=== PATIENT | female | born 2000 | race Caucasian/White ===

== ENCOUNTER 2020-12-07 20:57 | Emergency (ER) | payer SELFPAY ==
[2020-12-08 01:26] LABS: Absolute Lymphocytes (CBC) 1.2 K/uL (0.7-4.9); Basophils % 0.3 % (0-1.3); Hematocrit 37.5 % (36.0-45.0); Lymphocytes % 8.6 % (15.3-44.8); MPV 8.6 fL (7.6-11.3); RBC Red Blood Cell Count 4.47 M/uL (3.86-4.86)
[2020-12-08] MEDS ORDERED: KETOROLAC 30 MG/ML INJ ONE (01:26)
[2020-12-08] MEDS ORDERED: MORPHINE 4 MG/ML SYR ONE (01:26)
[2020-12-08] MEDS ORDERED: ONDANSETRON 4 MG/2 ML VIAL ONE (01:26)
[2020-12-08] MEDS ORDERED: NA CHLORIDE 0.9% 1,000 ML ONE (01:26)
[2020-12-08 01:47] LABS: ALT/SGPT 18 U/L (12-78); AST/SGOT 11 U/L (15-37); Albumin 3.7 g/dL (3.4-5.0); BUN Blood Urea Nitrogen 11 mg/dL (7-18); Bicarbonate 25 mmol/L (21-32); Bilirubin Direct < 0.1 mg/dL (0-0.2); Bilirubin Total 0.2 mg/dL (0.2-1.0); Glucose Level 106 mg/dL (74-106); Lipase 70 U/L (73-393); Potassium 4.3 mmol/L (3.5-5.1); Protein, Total 7.9 g/dL (6.4-8.2); Sodium Level 141 mmol/L (136-145)
[2020-12-08 01:48] LABS: Alkaline Phosphatase ND U/L (45-117)
[2020-12-08 02:04] LABS: Urine Bacteria <20 /HPF (<20)
[2020-12-08 02:05] LABS: Urine Blood 3+ (NEG); Urine Glucose NEGATIVE (NEG); Urine Mucus 3+ /HPF (NONE SEEN); Urine Protein TRACE (NEG); Urine Specific Gravity >1.030 (1.005-1.030); Urine Urothelial Cells <5 /HPF (NONE SEEN); Urine pH 5.5 (5.0-7.0)
--- NOTE | 2020-12-08 02:24 | ER ---
Nurse's Notes [facility] Name: Larry Robledo Age: 20 yrs Sex: Female : 2000 Arrival Date: 12/07/2020 Time: 20:58 Bed 5 Private MD: Diagnosis: Hydronephrosis with renal and ureteral calculous obstruction-passed Presentation: 12/07 21:45 Chief complaint: Patient states: R lower back and R abdominal pain for 1 day. States ll1 she has had 3 episodes of N/V today. Fever 100.2 at home today. Near syncope feeling all day. No dysuria or bloody urine. Period started today, not . Coronavirus screen: Client denies travel out of the [place] in the last 14 days. At this time, the client does not indicate any symptoms associated with coronavirus-19. Ebola Screen: Patient denies travel to an Ebola-affected area in the 21 days before illness onset. Initial Sepsis Screen: Does the patient meet any 2 criteria? No. Patient's initial sepsis screen is negative. Does the patient have a suspected source of infection? Yes: Acute abdominal pain. Risk Assessment: Do you want to hurt yourself or someone else? Patient reports no desire to harm self or others. Onset of symptoms was December 07, 2020. 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 - Social history:: Smoking status: Patient denies any tobacco usage or history of. Screenin/18 00:30 Abuse screen: Denies threats or abuse. Denies injuries from another. Nutritional wh screening: No deficits noted. Tuberculosis screening: No symptoms or risk factors identified. Fall Risk None identified. Assessment: 00:30 General: Appears in no apparent distress. Behavior is calm, cooperative, appropriate wh for age. Pain: Complains of pain in right lower quadrant Pain radiates to right low back and right mid back Pain began 1 day ago. Is intermittent. Neuro: Level of Consciousness is awake, alert, obeys commands, Oriented to person, place, time, situation, Appropriate for age. Cardiovascular: Capillary refill < 3 seconds. Respiratory: Airway is patent Respiratory effort is even, unlabored, Respiratory pattern is regular, symmetrical. GI: Abdomen is flat, non-distended, Abd is soft and non tender X 4 quads. : No signs and/or symptoms were reported regarding the genitourinary system. EENT: No signs and/or symptoms were reported regarding the EENT system. Derm: Skin is intact, is healthy with good turgor, Skin is pink, warm \T\ dry. normal. Musculoskeletal: Amputation of Circulation, motion, and sensation intact. 01:55 Reassessment: Patient appears in no apparent distress at this time. No changes from previously documented assessment. Patient and/or family updated on plan of care and expected duration. Pain level reassessed. Patient is alert, oriented x 3, equal unlabored respirations, skin warm/dry/pink. Vital Signs: 12/07 21:45 BP 140 / 75; Pulse 81; Resp 17; Temp 97.9; Pulse Ox 99% ; Weight 95.25 kg; Height 5 ft. ll1 9 in. (175.26 cm); Pain 9/10; 12/08 01:54 BP 118 / 77; Pulse 81; Resp 18; Pulse Ox 100% on R/A; 02:45 BP 113 / 71; Pulse 64; Resp 16; Pulse Ox 100% ; rv 12/07 21:45 Body Mass Index 31.01 (95.25 kg, 175.26 cm) ll1 ED Course: 12/07 20:58 Patient arrived in ED. cl3 21:47 Triage completed. ll1 21:49 Arm band placed on. ll1 12/08 00:28 Maegan Escobar, RN is Primary Nurse. 00:30 Patient has correct armband on for positive identification. Bed in low position. Call light in reach. Side rails up X 1. Pulse ox on. NIBP on. 00:35 Shalom King MD is Attending Physician. [facility] 00:45 Inserted saline lock: 20 gauge in right antecubital area, using aseptic technique. Blood collected. 01:27 CT Stone Protocol In Process Unspecified. EDCT 02:22 Donal Moy MD is Referral Physician. [facility] 02:45 No provider procedures requiring assistance completed. IV discontinued, intact, rv bleeding controlled, No redness/swelling at site. Pressure dressing applied. Administered Medications: 01:22 Drug: NS 0.9% 1000 ml Route: IV; Rate: 1 bolus; Site: right antecubital; 02:28 Follow up: Response: No adverse reaction; IV Status: Completed infusion 01:24 Drug: TORadol 30 mg Route: IVP; Site: right antecubital; 02:28 Follow up: Response: No adverse reaction; Pain is decreased 01:26 Drug: morphine 4 mg {Note: RASS 0.} Route: IVP; Site: right antecubital; 02:28 Follow up: Response: No adverse reaction; Pain is decreased; RASS: Alert and Calm (0) 01:28 Drug: Zofran (Ondansetron) 4 mg Route: IVP; Site: right antecubital; 02:28 Follow up: Response: No adverse reaction; Nausea is decreased 02:44 Drug: Flomax 0.4 mg Route: PO; rv 02:45 Follow up: Response: No adverse reaction 02:44 Drug: Rocephin - (cefTRIAXone) 1 grams Route: IVPB; Infused Over: 30 mins; Site: right rv antecubital; 02:45 Follow up: IV Status: Completed infusion rv Outcome: 02:24 Discharge ordered by . oliva 02:45 Discharged to home ambulatory. rv 02:45 Condition: good 02:45 Discharge instructions given to patient, Instructed on discharge instructions, follow up and referral plans. medication usage, Demonstrated understanding of instructions, follow-up care, medications, Prescriptions given X 4. 02:46 Patient left the ED. rv Signatures: Dispatcher [employer] EDCT Shalom King MD MD cha Habalo, Winsy, RN RN Brian Trujillo RN RN Trish Doe 3 Roscoe Doe RN RN ll1
--- NOTE | 2020-12-08 02:24 | EDPHYS ---
Physician Documentation [facility] Name: Larry Robledo Age: 20 yrs Sex: Female : 2000 Arrival Date: 12/07/2020 Time: 20:58 Bed 5 Private MD: ED Physician Shalom King HPI: 12/08 00:59 This 20 yrs old Female presents to ER via Ambulatory with complaints of oliva Kidney Pain. 00:59 The patient presents with abdominal pain in the right upper quadrant, right lower oliva quadrant, abdominal distention in the upper abdomen, in the lower abdomen. Onset: The symptoms/episode began/occurred 1 day(s) ago. The patient complains of pain in the right mid back and right low back. The pain radiates to the right low back. Onset: The symptoms/episode began/occurred 1 day(s) ago. Modifying factors: The symptoms are alleviated by nothing. the symptoms are aggravated by nothing. The symptoms radiate to right back, the right flank. Associated signs and symptoms: none. 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 - Social history:: Smoking status: Patient denies any tobacco usage or history of. ROS: 12/08 01:01 Constitutional: Negative for fever, chills, and weight loss, Eyes: Negative for injury, oliva pain, redness, and discharge, ENT: Negative for injury, pain, and discharge, Neck: Negative for injury, pain, and swelling, Cardiovascular: Negative for chest pain, palpitations, and edema, Respiratory: Negative for shortness of breath, cough, wheezing, and pleuritic chest pain, : Negative for injury, bleeding, discharge, and swelling, MS/Extremity: Negative for injury and deformity, Skin: Negative for injury, rash, and discoloration, Neuro: Negative for headache, weakness, numbness, tingling, and seizure, Psych: Negative for depression, anxiety, suicide ideation, homicidal ideation, and hallucinations, Allergy/Immunology: Negative for hives, rash, and allergies, Endocrine: Negative for neck swelling, polydipsia, polyuria, polyphagia, and marked weight changes, Hematologic/Lymphatic: Negative for swollen nodes, abnormal bleeding, and unusual bruising. Abdomen/GI: Positive for abdominal pain, abdominal distension. Back: Positive for pain at rest, of the right mid back and right low back. Exam: 01:01 Constitutional: This is a well developed, well nourished patient who is awake, alert, oliva and in no acute distress. Head/Face: Normocephalic, atraumatic. Eyes: Pupils equal round and reactive to light, extra-ocular motions intact. Lids and lashes normal. Conjunctiva and sclera are non-icteric and not injected. Cornea within normal limits. Periorbital areas with no swelling, redness, or edema. ENT: Nares patent. No nasal discharge, no septal abnormalities noted. Tympanic membranes are normal and external auditory canals are clear. Oropharynx with no redness, swelling, or masses, exudates, or evidence of obstruction, uvula midline. Mucous membranes moist. Neck: Trachea midline, no thyromegaly or masses palpated, and no cervical lymphadenopathy. Supple, full range of motion without nuchal rigidity, or vertebral point tenderness. No Meningismus. Chest/axilla: Normal chest wall appearance and motion. Nontender with no deformity. No lesions are appreciated. Cardiovascular: Regular rate and rhythm with a normal S1 and S2. No gallops, murmurs, or rubs. Normal PMI, no JVD. No pulse deficits. Respiratory: Lungs have equal breath sounds bilaterally, clear to auscultation and percussion. No rales, rhonchi or wheezes noted. No increased work of breathing, no retractions or nasal flaring. Female : Normal external genitalia. Skin: Warm, dry with normal turgor. Normal color with no rashes, no lesions, and no evidence of cellulitis. MS/ Extremity: Pulses equal, no cyanosis. Neurovascular intact. Full, normal range of motion. Neuro: Awake and alert, GCS 15, oriented to person, place, time, and situation. Cranial nerves II-XII grossly intact. Motor strength 5/5 in all extremities. Sensory grossly intact. Cerebellar exam normal. Normal gait. Psych: Awake, alert, with orientation to person, place and time. Behavior, mood, and affect are within normal limits. 01:01 Abdomen/GI: Inspection: distension, that is mild, Bowel sounds: active, all quadrants, Palpation: abdomen is soft and non-tender, Liver: no appreciated palpable abnormalities, Hernia: not appreciated. Vital Signs: 12/07 21:45 BP 140 / 75; Pulse 81; Resp 17; Temp 97.9; Pulse Ox 99% ; Weight 95.25 kg; Height 5 ft. ll1 9 in. (175.26 cm); Pain 9/10; 12/08 01:54 BP 118 / 77; Pulse 81; Resp 18; Pulse Ox 100% on R/A; wh 02:45 BP 113 / 71; Pulse 64; Resp 16; Pulse Ox 100% ; rv 12/07 21:45 Body Mass Index 31.01 (95.25 kg, 175.26 cm) ll1 MDM: 00:35 Patient medically screened. [facility] 01:03 Differential diagnosis: pyelonephritis, UTI, diverticulitis, appendicitis, oliva cholecystitis, Cholelithiasis, diverticulitis, non-specific abd pain, Pyelonephritis, Ureterolithiasis, urinary tract infection. Data reviewed: vital signs, nurses notes, lab test result(s), radiologic studies, CT scan. Data interpreted: athletic monitor: rate is 81 beats/min, rhythm is regular, Pulse oximetry: on room air is 99 %. Test interpretation: by ED physician or midlevel provider:. Counseling: I had a detailed discussion with the patient and/or guardian regarding: the historical points, exam findings, and any diagnostic results supporting the discharge/admit diagnosis, lab results, radiology results, the need for outpatient follow up, for definitive care, 12/08 00:34 Order name: Urine Microscopic Only; Complete Time: 02:21 12/08 00:34 Order name: Urine Culture 12/08 00:40 Order name: Urine Dipstick--Ancillary (enter results) [facility] 12/08 00:40 Order name: Urine --Ancillary (enter results) [facility] 12/08 00:41 Order name: Urine Dipstick-Ancillary; Complete Time: 02:21 EDMD 12/08 00:41 Order name: Urine --Ancillary; Complete Time: 02:21 [facility] 12/08 00:43 Order name: Basic Metabolic Panel [facility] 12/08 00:43 Order name: CBC with Diff [facility] 12/08 00:43 Order name: Hepatic Function; Complete Time: 02:21 [facility] 12/08 00:43 Order name: Lipase; Complete Time: 02:21 [facility] 12/08 00:43 Order name: CT Stone Protocol [facility] 12/08 00:43 Order name: Basic Metabolic Panel; Complete Time: 02:21 EDMS 12/08 01:30 Order name: Manual Differential EDMD 12/08 00:34 Order name: Urine Dipstick-Ancillary (obtain specimen); Complete Time: 00:39 12/08 00:34 Order name: Urine Test (obtain specimen); Complete Time: 00:39 12/08 00:43 Order name: IV Saline Lock; Complete Time: 01:16 [facility] 12/08 00:43 Order name: Labs collected and sent; Complete Time: 01:17 [facility] Administered Medications: 01:22 Drug: NS 0.9% 1000 ml Route: IV; Rate: 1 bolus; Site: right antecubital; 02:28 Follow up: Response: No adverse reaction; IV Status: Completed infusion 01:24 Drug: TORadol 30 mg Route: IVP; Site: right antecubital; 02:28 Follow up: Response: No adverse reaction; Pain is decreased 01:26 Drug: morphine 4 mg {Note: RASS 0.} Route: IVP; Site: right antecubital; 02:28 Follow up: Response: No adverse reaction; Pain is decreased; RASS: Alert and Calm (0) 01:28 Drug: Zofran (Ondansetron) 4 mg Route: IVP; Site: right antecubital; 02:28 Follow up: Response: No adverse reaction; Nausea is decreased wh 02:44 Drug: Flomax 0.4 mg Route: PO; rv 02:45 Follow up: Response: No adverse reaction rv 02:44 Drug: Rocephin - (cefTRIAXone) 1 grams Route: IVPB; Infused Over: 30 mins; Site: right rv antecubital; 02:45 Follow up: IV Status: Completed infusion rv Disposition: 12/08/20 02:24 Discharged to Home. Impression: Hydronephrosis with renal and ureteral calculous obstruction - passed. - Condition is Stable. - Discharge Instructions: Kidney Stones, Kidney Stones, [id number], Hydronephrosis. - Prescriptions for Tylenol- Codeine #3 300-30 mg Oral Tablet - take 2 tablets by ORAL route every 4-6 hours As needed; 20 tablet. Zofran 4 mg Oral Tablet - take 1 tablet by ORAL route every 12 hours As needed; 14 tablet. Flomax 0.4 mg Oral Capsule, Sust. Release 24 hr - take 1 capsule by ORAL route once daily 1/2 hour following the same meal each day; 14 capsule. Cipro 500 mg Oral Tablet - take 1 tablet by ORAL route every 12 hours for 7 days; 14 tablet. - Medication Reconciliation Form, Thank You Letter, Antibiotic Education, Prescription Opioid Use, Work release form form. - Follow up: Private Physician; When: 2 - 3 days; Reason: Recheck today's complaints, Continuance of care, Re-evaluation by your physician. Follow up: Donal Moy MD; When: 2 - 3 days; Reason: Recheck today's complaints, Continuance of care, Re-evaluation by your physician. - Problem is new. - Symptoms have improved. Signatures: Dispatcher [employer] EDShalom Nolasco MD MD cha Habalo, Winsy, RN RN Brian Trujillo RN RN rv Lewis, Lynsay, RN RN ll1 Corrections: (The following items were deleted from the chart) 02:46 02:24 12/08/2020 02:24 Discharged to Home. Impression: Hydronephrosis with renal and rv ureteral calculous obstruction - passed. Condition is Stable. Forms are Medication Reconciliation Form, Thank You Letter, Antibiotic Education, Prescription Opioid Use. Follow up: Private Physician; When: 2 - 3 days; Reason: Recheck today's complaints, Continuance of care, Re-evaluation by your physician. Follow up: Donal Moy; When: 2 - 3 days; Reason: Recheck today's complaints, Continuance of care, Re-evaluation by your physician. Problem is new. Symptoms have improved. oliva
[2020-12-08] MEDS ORDERED: TAMSULOSIN 0.4 MG SR CAP ONE (02:54)
[2020-12-08] MEDS ORDERED: CEFTRIAXONE/SWI 1gm 1 GM/10 ML SYR ONE (02:54)
[2020-12-08 02:58] VITALS: TEMP 97.9
[2020-12-08 03:06] VITALS: O2SAT 100
[2020-12-08 03:07] VITALS: BP 113/71
[2020-12-08 03:18] LABS: Blood Morphology Comment NOT SEEN (NOT SEEN); Platelet Estimate ADEQ
--- NOTE | 2020-12-08 09:58 | RAD REPORT ---
EXAM DESCRIPTION: CT Abdomen and Pelvis Without Intravenous Contrast CLINICAL HISTORY: The patient is 20 years old and is Female; ABD PAIN TECHNIQUE: Axial computed tomography images of the abdomen and pelvis without intravenous contrast. Sagittal and coronal reformatted images were created and reviewed. This CT exam was performed usi ng one or more of the following dose reduction techniques: automated exposure control, adjustment o f the mA and/or kV according to patient size, and/or use of iterative reconstruction technique.DLP: 1144 mGy*cm COMPARISON: None. FINDINGS: LUNG BASES: Lung bases are clear.HEART: Visualized heart is normal.ABDOMEN: LIVER: Unremarkable.GALLBLADDER AND BILE DUCTS: Unremarkable. No calcified stones. No ductal dilat ion.PANCREAS: Unremarkable. No ductal dilation.SPLEEN: Unremarkable. No splenomegaly.ADRENA LS: Unremarkable. No mass.KIDNEYS AND URETERS: Mild right hydronephrosis and hydroureter. No ureteral stone.STOMACH AND BOWEL: Unremarkable. No obstruction. No mucosal thickening.PELVIS: APPENDIX: The appendix is seen and is within normal limits.BLADDER: Bladder is decompressed. N o stones.REPRODUCTIVE: 4.3 cm right ovarian cyst.ABDOMEN and PELVIS: INTRAPERITONEAL SPACE: Unr emarkable. No free air. No significant fluid collection.BONES/JOINTS: No acute fracture. No dislocation.SOFT TISSUES: Unremarkable.VASCULATURE: Unremarkable. No abdominal aortic aneurys m.LYMPH NODES: Unremarkable. No enlarged lymph nodes. IMPRESSION: 1. Mild right hydronephrosis and hydroureter. No ureteral stone. Findings may repres ent recently passed stone or extrinsic compression. 2. 4.3 cm right ovarian cyst. Recommend follow- up pelvic US in 6-12 weeks.Reference: J Am Missy Radiol 2013;10:[id number]. Electronically signed by: Richie Young DO 12/08/2020 1:37 AM CDT Due to temporary technical issues with the PACS/Fluency reporting system, reports are being signed by the in house radiologist without review as a courtesy to ensure prompt reporting. The interpreting r adiologist is fully responsible for the content of the report.
== END 2020-12-08 02:46 | disposition home or self-care (01) ==
LOC: ER 20:57
DX: N13.2 Hydronephrosis with renal and ureteral calculous obstruction (principal); Z91.018 Allergy to other foods; Z91.040 Latex allergy status; Z91.048 Other nonmedicinal substance allergy status
CPT/HCPCS: 36415; 74176; 76377; 80048; 80076; 81003; 81015; 81025; 83690; 85025; 87086; 87088; 96361; 96374; 96375; 99284; J0696; J2405; J7030